=== PATIENT | male | born 2000 | race Asian ===

== ENCOUNTER 2022-04-08 16:44 | Emergency (ER) | payer OTHER ==
[~2022-04-08] VITALS: Ht 182.9 cm; Wt 68.9 kg
[2022-04-08 16:45] VITALS: TEMP 98.1
[2022-04-08 17:29] LABS: PLATELET COUNT 233 K/uL (142-355)
[2022-04-08 17:38] LABS: POTASSIUM 3.8 mmol/L (3.6-5.2)
[2022-04-08 18:09] VITALS: BP 101/66
== END 2022-04-08 18:09 | disposition home or self-care (01) ==
LOC: ED 16:44
PROVIDERS: Emergency Medicine Emergency Medical Services
DX: R10.13 Epigastric pain (principal)
CPT/HCPCS: 36415; 80053; 85027; 99283